=== PATIENT | male | born 1955 | race Caucasian/White ===

== ENCOUNTER → 2020-10-31 | Outpatient (CLI) | payer OTHER ==
--- NOTE | 2020-11-01 16:46 | ECHO ---
ECHOCARDIOGRAM DATE OF PROCEDURE: 10/31/2020 Age: 65 Gender: Male Height: 68 inches Weight: 225 pounds Body surface area: 2.15 m2 Outpatient. REFERRING PHYSICIAN: Carmelita Interiano nurse practitioner INDICATION: Coronary artery disease. MEASUREMENTS: 2D Measurements: RV - 3.6 cm LV - 4.8 cm Septum 1.3 cm Posterior wall 1.3 cm Aortic root 4.2 cm LA - 3.8 cm LVEF 75%. Doppler Measurements: AV - 1.0 m/s LVOT - 0.97 m/s LVOT diameter 2.0 cm MV-E 89, A 48, E/A ratio 1.8 Early mitral deceleration time 176 msec E prime medial 10.6 A prime medial 9 E prime lateral 10 PV - 0.8 m/s Pulmonary artery acceleration time 113 msec PASP 32 mmHg IVC - 1.6 cm COMMENTS: Normal sinus rhythm/sinus bradycardia. Technically challenging study in light of the patient's body habitus, but diagnostically useful information was still obtained. M-mode and 2-dimensional echocardiography was performed with pulse, continuous wave, color flow, but no tissue Doppler study was performed. Mild symmetrical left ventricular hypertrophy with hyperkinetic wall motion. Left atrial size upper limits of normal with current normal Doppler assessment of LV diastolic function and estimated mean left atrial pressure. Normal right heart chamber sizes and motion with Doppler sign of borderline pulmonary hypertension. Normal IVC sign and collapse against and elevated central venous pressure. Mildly dilated aortic root and proximal ascending aorta but normal aortic arch diameter. Three equal sized aortic cusps with mild cusp thickening but adequate cusp separation and only very mild aortic insufficiency. Normal-appearing mitral valvular apparatus and leaflet excursion with no posterior systolic buckling. Only trace mitral insufficiency. Normal-appearing tricuspid valve with trace (physiological) insufficiency. No apparent intracardiac mass or pericardial effusion.
== END ==
LOC: M CARPUL 09:58
PROVIDERS: ATTEND Nurse Practitioner Primary Care
DX: I25.10 Atherosclerotic heart disease of native coronary artery without angina pectoris (principal)